=== PATIENT | male | born 2000 | race Caucasian/White ===

== ENCOUNTER 2025-07-05 00:46 | Emergency (ER) | payer OTHER ==
[~2025-07-05] VITALS: Ht 170.2 cm; Wt 70.3 kg
[~2025-07-05 00:46] MED LIST: BECL8.7A5 IH; NO MEDS
[2025-07-05] MEDS ORDERED: GUAIFENESIN/CODEINE 10 ML UDC ONE (02:16)
[2025-07-05] MEDS: GUAIFENESIN/D-METHORPHAN HB 5 ML UDC PO ONE (02:18)
[2025-07-05 02:44] VITALS: O2SAT 98
[2025-07-05] MEDS: IPRATROPIUM NEB FS 0.5 MG/2.5 ML AMPUL.NEB NEB ONE (02:44)
[2025-07-05] MEDS: ALBUTEROL FS 2.5 MG/3 ML VIAL.NEB NEB ONE (02:44)
[2025-07-05] MEDS ORDERED: IPRATROPIUM NEB FS 0.5 MG/2.5 ML AMPUL.NEB ONE (02:49)
[2025-07-05] MEDS ORDERED: ALBUTEROL FS 2.5 MG/3 ML VIAL.NEB ONE (02:49)
[2025-07-05 03:44] VITALS: O2SAT 100
[2025-07-05] MEDS ORDERED: BENZ-13 PO (04:03)
[2025-07-05 04:31] VITALS: BP 155/85; TEMP 98.4; O2SAT 100
== END 2025-07-05 04:31 | disposition home or self-care (01) ==
LOC: ER 00:48
DX: R06.02 Shortness of breath (principal); R05.9 Cough, unspecified; R09.81 Nasal congestion; J45.909 Unspecified asthma, uncomplicated; I10 Essential (primary) hypertension; Z79.51 Long term (current) use of inhaled steroids; Z20.822 Contact with and (suspected) exposure to COVID-19
CPT/HCPCS: 71045-TC